=== PATIENT | female | born 1995 | race Two or more races ===

== ENCOUNTER 2025-02-22 08:06 | Emergency (ER) | payer MEDICAID, SELFPAY ==
[2025-02-22 09:04] VITALS: BP 134/87; PULSE 111; RESP 18; TEMP 36.6; O2SAT 99
[2025-02-22 09:05] VITALS: BMI 35.4
[2025-02-22] MEDS: DEXAMETHASONE SOD PHOS INJ 10 MG/ML VIAL IM (09:25)
[2025-02-22] MEDS: cefTRIAXone SOD INJ 1,000 MG VIAL 1000 MG IM (09:26)
[2025-02-22] MEDS: LIDOCAINE HCL 1% 20 ML VIAL 2.1 ML INFL (09:26)
[2025-02-22] MEDS: IBUPROFEN SUSP 100 MG/5 ML UDC 600 MG PO (09:28)
--- NOTE | 2025-02-22 09:32 | EDNOTE_ITS ---
<Statement entered by Casi Milton MD - 02/23/25 09:36> As co-signing physician, I was present and available for consult prn. I concur with the plan and care as documented by the midlevel provider. ED Dental RME/HPI General Chief complaint: Dental/Oral/Throat Stated complaint: SEVERE SORE THROAT Time Seen by Provider: 02/22/25 08:11 Arrival date/time: 02/22/25 08:06 29-year-old female presents to the emergency department today for complaints of sore throat patient reports no fever nausea or vomiting Limitations: no limitations Related Data Previous Rx's ?Medication ?Instructions ?Recorded omeprazole 40 mg capsule,delayed 40 mg PO QDAY #60 cap s 12/25/19 release promethazine 25 mg tablet 25 mg PO BID PRN nausea and 12/25/19 vomiting #14 tabs omeprazole 20 mg capsule,delayed 20 mg PO QDAY #30 cap s 11/03/21 release ondansetron 4 mg disintegrating 4 mg PO Q6H PRN nausea and 11/03/21 tablet vomiting #14 tabs metoclopramide HCl 10 mg tablet 10 mg PO Q6H PRN nause a and 06/15/22 (Reglan) vomiting #20 tabs pantoprazole 40 mg granules 40 mg PO QDAY #30 ea 06/15 delayed-release for susp in packet (Protonix) pantoprazole 40 mg tablet,delayed 40 mg PO QDAY #30 ta bs 08/22/22 release (Protonix) sucralfate 1 gram tablet (Carafate) 1 g PO BID #14 tab s 08/22/22 potassium chloride 20 mEq 40 meq (2 x 20 mEq) PO BID # 10 tabs 10/20/22 tablet,extended release ondansetron 4 mg disintegrating 4 mg PO Q6H PRN nausea and 03/13/23 tablet vomiting #10 tabs clindamycin HCl 150 mg capsule 450 mg (3 x 150 mg) PO TID 7 days 02/22/25 #63 caps ibuprofen 800 mg tablet 800 mg PO TID PRN pain #30 t abs 02/22/25 prednisone 10 mg tablet 30 mg (3 x 10 mg) PO BID 3 d ays 02/22/25 #18 tabs Allergies Allergy/AdvReac Type Severity Reaction Status Date / Time No Known Allergies Allergy Verified 02/22/25 08:08 Review of Systems Review of Systems Systems Reviewed: All systems reviewed, normal except as documented Constitutional Constitutional: Reports system reviewed and no additional complaints, except as documented, Denies fever(s) and Denies headache(s) Eyes Eyes: Reports system reviewed and no additional complaints, except as documented and Denies blurry vision ENT Ears, Nose, Mouth, and Throat: Reports system reviewed and no additional complaints, except as documented, Denies headache(s), Reports nasal congestion, Reports nasal discharge and Reports sore throat Cardiovascular Cardiovascular: Reports system reviewed and no additional complaints, except as documented, Denies chest pain and Denies dyspnea Respiratory Respiratory: Reports system reviewed and no additional complaints, except as documented, Denies chest congestion, Denies cough and Denies dyspnea Gastrointestinal Gastrointestinal: Reports system reviewed and no additional complaints, except as documented and Denies abdominal pain Integumentary/Breasts Skin/Breast: Reports system reviewed and no additional complaints, except as documented and Denies rash Neurologic Neurologic: Reports system reviewed and no additional complaints, except as documented, Reports as per HPI and Denies headache(s) Past Medical History Past Medical History NEUROLOGIC: Negative Neurological Disorders or Seizures CARDIAC: Negative Cardiac Disorders or Congestive Heart Failure RESPIRATORY: Negative Chronic Obstructive Pulmonary Disease (COPD) or Asthma GASTROINTESTINAL: Positive Gastrointestinal Disorders, Gall Bladder Disease, Gastroesophageal Reflux Disease and Obesity GENITOURINARY: Negative Genitourinary Disorders or Renal Disease MUSCULOSKELETAL: Negative Musculoskeletal Disorders ENDOCRINE: Negative Endocrine Disorders, Diabetes Mellitus Type 1 or Diabetes Mellitus Type 2 HEMATOLOGIC: Negative Blood Disorders or Sickle Cell Disease OTHER HISTORY: Negative Hospitalization, Autoimmune Disease, Falls, Blood Transfusions, Blood Transfusion Reaction, Anesthesia Reactions, Chicken Pox, Measles or Mumps Family History FAMILY HISTORY: Positive Family Respiratory Disorders, Family Cardiac Disorders and Family Cancer; Negative Family Psychiatric Problems, Family Gastrointestinal Problems, Family Surgery or Family Anesthesia Reaction Surgical History SURGICAL: Positive Abdominal Surgery Social History SMOKING STATUS: Never smoker SUBSTANCE USE: does not use ED Exam General Limitations: Present no limitations General appearance: Present alert and in no apparent distress Head Head exam: Present atraumatic Eye Eye exam: Present normal appearance, PERRL and EOMI ENT ENT exam: Present normal exam, normal oropharynx and mucous membranes moist Neck Neck exam: Present normal inspection, full ROM and trachea midline Chest Chest inspection: Present normal inspection and symmetric chest wall rise Respiratory Respiratory exam: Present normal lung sounds bilaterally Cardiovascular Cardiovascular exam: Present regular rate, normal rhythm and normal heart sounds Abdominal Exam Abdominal exam: Present soft and normal bowel sounds Extremities Exam Extremities exam: Present normal inspection and full ROM Back Exam Back exam: Present normal inspection and full ROM Neurological Exam Neurological exam: Present alert, oriented X3 and CN II-XII intact Psychiatric Psychiatric exam: Present normal affect and normal mood Skin Skin exam: Present warm, dry, intact and normal color Course Quality Measures none Orders Category Date Time Status Dexamethasone Inj [Decadron Inj] Med 02/22/25 09:11 Discontinued 10 mg IM X1 ONE Ibuprofen Susp [Motrin Susp] Med 02/22/25 09:11 Discontinued 600 mg PO X1 ONE Lidocaine 1% 20 ml [Xylocaine 1% 20 ML] Med 02/22/25 09:11 Discontinued 2.1 ml INFL X1 ONE cefTRIAXone [Rocephin] Med 02/22/25 09:11 Discontinued 1,000 mg IM X1 ONE Vital Signs Vital signs: Vital Signs Temperature 98 F 02/22/25 09:04 Pulse Rate 111 H 02/22/25 09:04 Respiratory Rate 18 02/22/25 09:04 Blood Pressure 134/87 H 02/22/25 09:04 Pulse Oximetry (%) 99 02/22/25 09:04 Oxygen Delivery Method Room Air 02/22/25 09:04 O2 saturation 9 9% room air within normal limits Dental / Oral MDM Narrative MDM Narrative:: 29-year-old female presents to the emergency department today for complaints of sore throat patient reports no fever nausea or vomiting On exam patient well-appearing patient does not appear look toxic no acute distress On exam patient does have tonsillar exudate and tonsillar swelling I do not appreciate any peritonsillar abscess Patient has no trismus no hoarseness of voice Patient given antibiotics steroids and ibuprofen Explained to the patient like to see her tomorrow for reevaluation and repeat injection of Rocephin Patient data External records reviewed:: [facility] previous records Clinical information provided by:: patient Social determinants that could affect healthcare access:: none Patient has the following chronic illnesses:: None How is presenting disease/condition affected by chronic disease/condition?: no chronic disease Evaluation data The following diagnostics were reviewed and interpreted by me:: other (specify) Lab and/or radiology exams considered but not ordered:: Considered not ordered Interpretation Summary: N/A Medications / Prescriptions Medications or Prescriptions considered but not ordered:: Given Medication administrations:: Medication Administration History Discontinued Medications Ceftriaxone Sodium (Ceftriaxone Sod Inj 1,000 Mg Vial) 1,000 mg IM X1 ONE Stop: 02/22/25 09:12 Last Admin: 02/22/25 09:26 Dose: 1,000 mg Documented By: Dexamethasone Sodium Phosphate (Dexamethasone Sod Phos Inj 10 Mg/Ml Vial) 10 mg IM X1 ONE Stop: 02/22/25 09:12 Last Admin: 02/22/25 09:25 Dose: 10 mg Documented By: Ibuprofen (Ibuprofen Susp 100 Mg/5 Ml Udc) 600 mg PO X1 ONE Stop: 02/22/25 09:12 Last Admin: 02/22/25 09:28 Dose: 600 mg Documented By: Lidocaine HCl (Lidocaine Hcl 1% 20 Ml Vial) 2.1 ml INFL X1 ONE Stop: 02/22/25 09:12 Last Admin: 02/22/25 09:26 Dose: 2.1 ml Documented By: Given Consultations Consultation(s) initiated? (list below): No Diagnosis Dental Differential Diagnosis: other (Viral pharyngitis, streptococcal pharyngitis) Most likely diagnosis given after review of the tests above:: Pharyngitis Admission Indicated Admission indicated?: not indicated Admission Request Was there a request for admission?: No Disposition Plan Disposition Plan: Discharge Discharge Attestation Discharge Attestation: The patient and all family members were given an opportunity to ask questions and understood the discharge instructions. Discharge instructions specifically effects, indications for sooner follow up or return to the emergency department, and the expected course of current diagnosis. Patient condition: Stable Discharge Plan Plan Patient Disposition: HOME (Self Care) Discharge Disposition comment: Stable Prescriptions/Referrals Prescriptions/Med Rec: New prednisone 10 mg tablet 30 mg PO BID 3 Days Qty: 18 0RF ibuprofen 800 mg tablet 800 mg PO TID PRN (Reason: pain) Qty: 30 0RF clindamycin HCl 150 mg capsule 450 mg PO TID 7 Days Qty: 63 0RF No Action omeprazole 40 mg capsule,delayed release(DR/EC) 40 mg PO QDAY Qty: 60 0RF promethazine 25 mg tablet 25 mg PO BID PRN (Reason: nausea and vomiting) Qty: 14 0RF omeprazole 20 mg capsule,delayed release(DR/EC) 20 mg PO QDAY Qty: 30 0RF ondansetron 4 mg tablet,disintegrating 4 mg PO Q6H PRN (Reason: nausea and vomiting) Qty: 14 0RF pantoprazole [Protonix] [address] for susp in packet 40 mg PO QDAY Qty: 30 0RF metoclopramide HCl [Reglan] 10 mg tablet 10 mg PO Q6H PRN (Reason: nausea and vomiting) Qty: 20 0RF pantoprazole [Protonix] 40 mg tablet,delayed release (DR/EC) 40 mg PO QDAY Qty: 30 0RF sucralfate [Carafate] 1 gram tablet 1 g PO BID Qty: 14 0RF ondansetron 4 mg tablet,disintegrating 4 mg PO Q6H PRN (Reason: nausea and vomiting) Qty: 10 0RF potassium chloride 20 mEq tablet extended release 40 meq PO BID Qty: 10 0RF Referrals: Andreas Boston PA-C [Primary Care Provider] - In 1 week Problem List Clinical Impression: Acute streptococcal pharyngitis Patient/Caregiver Discharge Instructions Education Materials: ED Pharyngitis, Strep (Presumed) Additional Instructions: Please return tomorrow for reevaluation for worsening symptoms return immediately Print Language: Arabic Stand Alone Forms: [employer] Info., Work/School Release, Patient Portal Info Letter PA/EBER Supervising Physician PA/EBER Supervising Physician: Dr. Milton
== END 2025-02-22 10:55 | disposition home or self-care (01) ==
PROVIDERS: Emergency Provider Nurse Practitioner Primary Care; PCP Physician Assistant
DX: J02.0 Streptococcal pharyngitis (principal); Z79.52 Long term (current) use of systemic steroids
CPT/HCPCS: 96372; 99282; J0696; J1100; J3490; A9270

== ENCOUNTER 2025-02-23 08:41 | Emergency (ER) | payer MEDICAID, SELFPAY ==
[2025-02-23 08:48] VITALS: BP 130/80; PULSE 90; RESP 18; TEMP 36.7; O2SAT 96
--- NOTE | 2025-02-23 08:48 | EDNOTE_ITS ---
<Statement entered by Casi Milton MD - 02/23/25 09:35> As co-signing physician, I was present and available for consult prn. I concur with the plan and care as documented by the midlevel provider. ED General RME/HPI General Chief complaint: General Adult/Misc Complain Stated complaint: FOLLOW-UP Time Seen by Provider: 02/23/25 08:46 Arrival date/time: 02/23/25 08:41 29-year-old female presents to the emergency department today patient was seen by myself yesterday instructed to return today for repeat Rocephin injection patient was seen yesterday for infection in her throat. Patient reports significantly better than yesterday Limitations: no limitations Related Data Previous Rx's ?Medication ?Instructions ?Recorded omeprazole 40 mg capsule,delayed 40 mg PO QDAY #60 cap s 12/25/19 release promethazine 25 mg tablet 25 mg PO BID PRN nausea and 12/25/19 vomiting #14 tabs omeprazole 20 mg capsule,delayed 20 mg PO QDAY #30 cap s 11/03/21 release ondansetron 4 mg disintegrating 4 mg PO Q6H PRN nausea and 11/03/21 tablet vomiting #14 tabs metoclopramide HCl 10 mg tablet 10 mg PO Q6H PRN nause a and 06/15/22 (Reglan) vomiting #20 tabs pantoprazole 40 mg granules 40 mg PO QDAY #30 ea 06/15 delayed-release for susp in packet (Protonix) pantoprazole 40 mg tablet,delayed 40 mg PO QDAY #30 ta bs 08/22/22 release (Protonix) sucralfate 1 gram tablet (Carafate) 1 g PO BID #14 tab s 08/22/22 potassium chloride 20 mEq 40 meq (2 x 20 mEq) PO BID # 10 tabs 10/20/22 tablet,extended release ondansetron 4 mg disintegrating 4 mg PO Q6H PRN nausea and 03/13/23 tablet vomiting #10 tabs clindamycin HCl 150 mg capsule 450 mg (3 x 150 mg) PO TID 7 days 02/22/25 #63 caps ibuprofen 800 mg tablet 800 mg PO TID PRN pain #30 t abs 02/22/25 prednisone 10 mg tablet 30 mg (3 x 10 mg) PO BID 3 d ays 02/22/25 #18 tabs Allergies Allergy/AdvReac Type Severity Reaction Status Date / Time No Known Allergies Allergy Verified 02/23/25 08:43 Review of Systems Review of Systems Systems Reviewed: All systems reviewed, normal except as documented Constitutional Constitutional: Reports system reviewed and no additional complaints, except as documented, Denies fever(s) and Denies headache(s) Eyes Eyes: Reports system reviewed and no additional complaints, except as documented and Denies blurry vision ENT Ears, Nose, Mouth, and Throat: Reports system reviewed and no additional complaints, except as documented, Denies headache(s), Denies nasal congestion, Denies nasal discharge and Reports sore throat Cardiovascular Cardiovascular: Reports system reviewed and no additional complaints, except as documented, Denies chest pain and Denies dyspnea Respiratory Respiratory: Reports system reviewed and no additional complaints, except as documented, Denies chest congestion, Denies cough and Denies dyspnea Gastrointestinal Gastrointestinal: Reports system reviewed and no additional complaints, except as documented and Denies abdominal pain Integumentary/Breasts Skin/Breast: Reports system reviewed and no additional complaints, except as documented and Denies rash Neurologic Neurologic: Reports system reviewed and no additional complaints, except as documented, Reports as per HPI and Denies headache(s) Past Medical History Past Medical History NEUROLOGIC: Negative Neurological Disorders or Seizures CARDIAC: Negative Cardiac Disorders or Congestive Heart Failure RESPIRATORY: Negative Chronic Obstructive Pulmonary Disease (COPD) or Asthma GASTROINTESTINAL: Positive Gastrointestinal Disorders, Gall Bladder Disease, Gastroesophageal Reflux Disease and Obesity GENITOURINARY: Negative Genitourinary Disorders or Renal Disease MUSCULOSKELETAL: Negative Musculoskeletal Disorders ENDOCRINE: Negative Endocrine Disorders, Diabetes Mellitus Type 1 or Diabetes Mellitus Type 2 HEMATOLOGIC: Negative Blood Disorders or Sickle Cell Disease OTHER HISTORY: Negative Hospitalization, Autoimmune Disease, Falls, Blood Transfusions, Blood Transfusion Reaction, Anesthesia Reactions, Chicken Pox, Measles or Mumps Family History FAMILY HISTORY: Positive Family Respiratory Disorders, Family Cardiac Disorders and Family Cancer; Negative Family Psychiatric Problems, Family Gastrointestinal Problems, Family Surgery or Family Anesthesia Reaction Surgical History SURGICAL: Positive Abdominal Surgery Social History SMOKING STATUS: Never smoker SUBSTANCE USE: does not use ED Exam General Limitations: Present no limitations General appearance: Present alert and in no apparent distress Head Head exam: Present atraumatic, normocephalic and normal inspection Eye Eye exam: Present normal appearance, PERRL and EOMI; Absent conjunctival injection ENT ENT exam: Present mucous membranes moist Expanded ENT Exam Throat exam: Present tonsillar erythema, tonsillomegaly and tonsillar exudate; Absent R peritonsillar mass or L peritonsillar mass Neck Neck exam: Present normal inspection, full ROM and trachea midline Chest Chest inspection: Present normal inspection and symmetric chest wall rise Respiratory Respiratory exam: Present normal lung sounds bilaterally; Absent respiratory distress Cardiovascular Cardiovascular exam: Present regular rate, normal rhythm and normal heart sounds Abdominal Exam Abdominal exam: Present soft and normal bowel sounds Extremities Exam Extremities exam: Present normal inspection and full ROM Back Exam Back exam: Present normal inspection and full ROM Neurological Exam Neurological exam: Present alert, oriented X3 and CN II-XII intact Psychiatric Psychiatric exam: Present normal affect and normal mood Skin Skin exam: Present warm, dry, intact and normal color Course Quality Measures none Orders Category Date Time Status Lidocaine 1% 20 ml [Xylocaine 1% 20 ML] Med 02/23/25 08:49 Discontinued 2.1 ml INFL X1 ONE cefTRIAXone [Rocephin] Med 02/23/25 08:49 Discontinued 1,000 mg IM X1 ONE Vital Signs Vital signs: Vital Signs Temperature 98.1 F 02/23/25 08:48 Pulse Rate 90 02/23/25 08:48 Respiratory Rate 18 02/23/25 08:48 Blood Pressure 130/80 02/23/25 08:48 Pulse Oximetry (%) 96 02/23/25 08:48 Oxygen Delivery Method Room Air 02/23/25 08:48 O2 saturation 96% on room air within the limits Discharge Plan Plan Patient Disposition: HOME (Self Care) Discharge Disposition comment: stable Prescriptions/Referrals Prescriptions/Med Rec: No Action omeprazole 40 mg capsule,delayed release(DR/EC) 40 mg PO QDAY Qty: 60 0RF promethazine 25 mg tablet 25 mg PO BID PRN (Reason: nausea and vomiting) Qty: 14 0RF omeprazole 20 mg capsule,delayed release(DR/EC) 20 mg PO QDAY Qty: 30 0RF ondansetron 4 mg tablet,disintegrating 4 mg PO Q6H PRN (Reason: nausea and vomiting) Qty: 14 0RF pantoprazole [Protonix] [address] for susp in packet 40 mg PO QDAY Qty: 30 0RF metoclopramide HCl [Reglan] 10 mg tablet 10 mg PO Q6H PRN (Reason: nausea and vomiting) Qty: 20 0RF pantoprazole [Protonix] 40 mg tablet,delayed release (DR/EC) 40 mg PO QDAY Qty: 30 0RF sucralfate [Carafate] 1 gram tablet 1 g PO BID Qty: 14 0RF ondansetron 4 mg tablet,disintegrating 4 mg PO Q6H PRN (Reason: nausea and vomiting) Qty: 10 0RF potassium chloride 20 mEq tablet extended release 40 meq PO BID Qty: 10 0RF prednisone 10 mg tablet 30 mg PO BID 3 Days Qty: 18 0RF ibuprofen 800 mg tablet 800 mg PO TID PRN (Reason: pain) Qty: 30 0RF clindamycin HCl 150 mg capsule 450 mg PO TID 7 Days Qty: 63 0RF Problem List Clinical Impression: Acute streptococcal tonsillitis Patient/Caregiver Discharge Instructions Education Materials: ED Pharyngitis, Strep (Presumed) Additional Instructions: Please follow up with your primary care doctor in the next 24-48hrs for any worsening symptoms return here immediately Print Language: Albanian Stand Alone Forms: [employer] Info., Patient Portal Info Letter PA/SAFE [employer]ULT INSTALLER Supervising Physician PA/[employer] INSTALLER Supervising Physician: Dr. milton MDM Narrative MDM hospital course (for use when minimal MDM required): 29-year-old female presents to the emergency department today patient was seen by myself yesterday instructed to return today for repeat Rocephin injection patient was seen yesterday for infection in her throat. Patient reports significantly better than yesterday Clinically patient is significantly better than yesterday Patient has decreased swelling from her throat Patient given Rocephin injection discharged home Patient has no trismus no hoarseness of voice patient can swallow without difficulty at this time Patient discharged home in no distress to follow-up with primary care doctor in the next 24 to 48 hours and for any worsening symptoms to return to the ER immediately Clinical Information Provided by: patient Medical Records reviewed [facility] Meds/Rx considered, not ordered describe: Given Labs/Rad/Tests considered, not ordered None Chronic Illness/Social Conditions which may negatively complicate care or outcome(s)-explain: None or not applicable EKG EKG not done Labs Labs: none Imaging Imaging interpretation: none Medication Administration(s) Medication Administration History Discontinued Medications Ceftriaxone Sodium (Ceftriaxone Sod Inj 1,000 Mg Vial) 1,000 mg IM X1 ONE Stop: 02/23/25 08:50 Last Admin: 02/23/25 09:07 Dose: 1,000 mg Documented By: Lidocaine HCl (Lidocaine Hcl 1% 20 Ml Vial) 2.1 ml INFL X1 ONE Stop: 02/23/25 08:50 Last Admin: 02/23/25 09:08 Dose: 2.1 ml Documented By: Given Diagnosis Differential Diagnosis ED Complaint MDM: Pharyngitis, streptococcal pharyngitis, URI
[2025-02-23 08:50] VITALS: BMI 35.4
[2025-02-23] MEDS: cefTRIAXone SOD INJ 1,000 MG VIAL 1000 MG IM (09:07)
[2025-02-23] MEDS: LIDOCAINE HCL 1% 20 ML VIAL 2.1 ML INFL (09:08)
== END 2025-02-23 09:13 | disposition home or self-care (01) ==
LOC: SERX 09:07
PROVIDERS: Emergency Provider Nurse Practitioner Primary Care; PCP Physician Assistant
DX: J03.00 Acute streptococcal tonsillitis, unspecified (principal)
CPT/HCPCS: 96372; 99281; J0696; J3490